=== PATIENT | female | born 1975 | race Caucasian/White ===

== ENCOUNTER 2023-07-07 16:17 | Emergency (ER) | payer SELFPAY | END 2023-07-07 17:23 | LOC: MW.ED 16:17 | DX: Z76.0 Encounter for issue of repeat prescription (principal); Z75.8 Other problems related to medical facilities and other health care | CPT/HCPCS: 99282 ==

== ENCOUNTER 2023-07-09 13:20 | Emergency (ER) | payer SELFPAY ==
[2023-07-09] MEDS: Albuterol 8 GM Inhaler INH STA (14:12)
[2023-07-09] MEDS: Dexamethasone 4 MG Tab PO STA (14:12)
[2023-07-09 14:25] LABS: CORONAVIRUS COVID-19 NAA NEGATIVE (NEGATIVE); INFLUENZA A NAA NEGATIVE (NEGATIVE); INFLUENZA B NAA NEGATIVE (NEGATIVE)
== END 2023-07-09 16:26 ==
LOC: MW.ED 13:20
DX: J45.21 Mild intermittent asthma with (acute) exacerbation (principal); Z02.89 Encounter for other administrative examinations; Z75.8 Other problems related to medical facilities and other health care; Z79.899 Other long term (current) drug therapy
CPT/HCPCS: 0240U; 71046; 87651; 99285; A9270; J8540; 99283